=== PATIENT | female | born 1960 | race Caucasian/White ===

== ENCOUNTER 2022-10-27 14:07 | Outpatient (CLI) | payer MEDICARE, SELFPAY ==
[2022-10-27 16:01] LABS: Influenza A QL RT-PCR Negative (Negative); Influenza B QL RT-PCR Negative (Negative); RSV RNA, RT-PCR Negative (Negative); SARS-CoV-2 RNA PCR Negative
== END 2022-10-27 14:08 | disposition home or self-care (01) ==
LOC: ANHLAB 14:14
PROVIDERS: PCP Family Medicine; Visit Provider Physician Assistant
DX: R05.9 Cough, unspecified (principal); R50.9 Fever, unspecified; Z20.822 Contact with and (suspected) exposure to COVID-19
CPT/HCPCS: 87637